=== PATIENT | female | born 1965 | race African-American/Black ===

== ENCOUNTER → 2016-10-15 | Emergency (ER) | payer OTHER ==
[~2016-10-15] VITALS: Ht 157.5 cm; Wt 52.6 kg
[~2016-10-15] MED LIST: ALBUTEROL SULF8.5 GM INH; CYCLOBENZAPRINE10 MG ORAL; Ketorolac 30mg Inj IM ONE; NIFEDIPINE10 MG ORAL; NORCO 10/3251 EA ORAL; NORCO 5-325 TA1 EAC1 ORAL; Norco 5mg/325mg tab ORAL ONE; PREDNISONE20 MG ORAL
[2016-10-15 20:38] VITALS: BP 156/101
[2016-10-15 21:31] VITALS: BP 156/101
--- NOTE | 2016-10-15 21:48 | Emergency Room Report ---
History of Present Illness General Chief Complaint: Pain Source: Patient Present Illness HPI The patient is a 51-year-old female with a history of sciatica presenting for lower back pain which radiates down the left leg. She states that she has been more active within the past 2 days and thinks this may have provoked it. Pain is described as a 9/10 dull ache. Worse with walking and bending over. She has tried Motrin which has not helped. She denies any other symptoms including nausea, vomiting, abdominal pain, fever, chills, numbness or tingling, chest pain, shortness of breath Allergies: Coded Allergies: HYDROMORPHONE (Unverified Allergy, Unknown, 06/20/15) LORAZEPAM (Unverified Allergy, Unknown, 06/20/15) PENICILLIN G (Unverified Allergy, Unknown, 06/20/15) Patient History Past Medical History: see triage record Pertinent Family History: none Last Menstrual Period: 8 months ago : 0 Para: 0 Reviewed Nursing Documentation: PMH: Agreed, PSxH: Agreed Nursing Documentation-PMH Past Medical History: No History, Except For Hx Cardiac Problems: No - ANXIETY, scaitica, lupus Hx Hypertension: Yes Hx Asthma: Yes Review of Systems All Other Systems: negative except mentioned in HPI Physical Exam Vital Signs Date Time Temp Pulse Resp B/P Pulse Ox O2 Delivery O2 Flow Rate FiO2 10/15/16 19:51 98.1 118 21 166/114 97 Room Air Sp02 EP Interpretation: reviewed, normal General Appearance: no apparent distress, alert, GCS 15, non-toxic Head: normocephalic, atraumatic Eyes: bilateral eye PERRL, bilateral eye normal inspection ENT: hearing grossly normal, normal pharynx, no angioedema, normal voice Neck: full range of motion, supple/symm/no masses Respiratory: chest non-tender, lungs clear, normal breath sounds, speaking full sentences Cardiovascular #1: regular rate, rhythm, no edema Gastrointestinal: normal bowel sounds, non tender, soft, non-distended, no guarding, no rebound Musculoskeletal: tender - TTP over the L lower back and posterior thigh Neurologic: alert, oriented x3, responsive, motor strength/tone normal, sensory intact, speech normal Psychiatric: judgement/insight normal, memory normal, mood/affect normal, no suicidal/homicidal ideation Skin: normal color, no rash, warm/dry, well hydrated Lymphatic: no adenopathy Medical Decision Making PA Attestation Dr. Byrd is my supervising physician. Patient management was discussed with my supervising physician Diagnostic Impression: Primary Impression: Sciatica Qualified Codes: M54.30 - Sciatica, unspecified side ER Course The patient is a 51-year-old female presenting for sciatica flareup Differential diagnosis is considered but not limited to: Sciatica, muscle strain , sprain, fracture, disc herniation, cauda equina syndrome, pyelonephritis, among others Physical exam: afebrile. No apparent distress There is tenderness to palpation over the left paraspinal muscles as well as the posterior left thigh. No midline tenderness No imaging is needed at this time as this was a chronic condition The patient is given IM Toradol and [place] and states pain has decreased. She will need to follow up with primary doctor and possibly pain management. She is given a small prescription for [place] and Flexeril. ER precautions are given Last Vital Signs Date Time Temp Pulse Resp B/P Pulse Ox O2 Delivery O2 Flow Rate FiO2 10/15/16 21:31 97.9 109 18 156/101 97 Room Air Status: improved Disposition: HOME, SELF-CARE Condition: Improved Scripts Hydrocodone Bit/Acetaminophen 5-325* (NORCO 5-325 TABLET*) 1 Each Tablet 1 TAB ORAL Q6HR Y for For Pain, #5 TAB Prov: SUMIT URRUTIA.A. 10/15/16 Cyclobenzaprine Hcl* (FLEXERIL*) 10 Mg Tablet 10 MG ORAL THREE TIMES A DAY, #15 TAB Prov: SUMIT URRUTIA.A. 10/15/16 Patient Instructions: Sciatica Additional Instructions: I discussed my findings with the patient. All questions and concerns have been answered. Treatment and medication compliance have been addressed. I advised the patient that they need to follow up with PMD in 3-5 days. Return to ED if symptoms worsen, new symptoms arise, or if needed for any reason. Patient verbalized understanding of discharge instructions. SUMIT URRUTIA Oct 15, 2016 21:48
== END | disposition home or self-care (01) ==
LOC: EMR 20:15
DX: M54.42 Lumbago with sciatica, left side (principal); F41.9 Anxiety disorder, unspecified; I10 Essential (primary) hypertension; Z88.0 Allergy status to penicillin; Z88.8 Allergy status to other drugs, medicaments and biological substances; J45.909 Unspecified asthma, uncomplicated
CPT/HCPCS: 96372; 99284; J1885

== ENCOUNTER 2017-01-16 15:55 | Emergency (ER) | payer OTHER ==
[~2017-01-16] VITALS: Ht 154.9 cm; Wt 52.2 kg
[~2017-01-16 15:55] MED LIST changes: -Ketorolac 30mg Inj IM ONE; -Norco 5mg/325mg tab ORAL ONE
--- NOTE | 2017-01-16 17:08 | Emergency Room Report ---
History of Present Illness General Chief Complaint: Lower Extremity Injury Source: Patient Present Illness HPI 51 YO Female presents to the ED c/o Right foot pain s/p fracture sustained 3 weeks ago. no appt with ortho until 2 weeks from now. 01/15 pain. not been using crutches. Denies new trauma or fall. Denies swelling, changes in skin color, or loss of sensation in the extremity. Pt admits to not be using her crutches regularly. Pt. reports pmhx of sciatica. Denies numbness tingling or loss of sensation or gross motor movements of the extremities, incontinence of bowel or bladder. Denies CP, Palpitations, LOC, AMS, dizziness, Changes in Vision, Sensation, paresthesias, or a sudden severe headache. Allergies: Coded Allergies: HYDROMORPHONE (Unverified Allergy, Unknown, 06/20/15) KETOROLAC (Verified Allergy, Unknown, 01/16/17) LORAZEPAM (Unverified Allergy, Unknown, 06/20/15) PENICILLIN G (Unverified Allergy, Unknown, 06/20/15) Patient History Past Medical History: see triage record Past Surgical History: none Pertinent Family History: none Now: No Reviewed Nursing Documentation: PMH: Agreed, PSxH: Agreed Nursing Documentation-PMH Hx Cardiac Problems: No - ANXIETY, scaitica, lupus Hx Hypertension: Yes Hx Asthma: Yes Review of Systems All Other Systems: negative except mentioned in HPI Physical Exam Vital Signs Date Time Temp Pulse Resp B/P (MAP) Pulse Ox O2 Delivery O2 Flow Rate FiO2 01/16/17 16:28 98.8 103 20 163/119 94 Room Air Sp02 EP Interpretation: reviewed, normal General Appearance: no apparent distress, alert, GCS 15, non-toxic Head: normocephalic, atraumatic Eyes: bilateral eye normal inspection, bilateral eye PERRL ENT: hearing grossly normal, normal voice Neck: full range of motion, supple/symm/no masses Respiratory: lungs clear, normal breath sounds, speaking full sentences Cardiovascular #1: regular rate, rhythm, no edema Cardiovascular #2: 2+ dorsalis pedis (R), 2+ dorsalis pedis (L) Gastrointestinal: normal bowel sounds, non tender, soft, no guarding, no rebound Rectal: deferred Genitourinary: normal inspection, no CVA tenderness Musculoskeletal: back normal, gait/station normal, normal range of motion, tender - TTP to the dorsum of the right lateral metatarsals, short leg posterior splint is in place, pt. is NVI. Neurologic: alert, oriented x3, responsive, motor strength/tone normal, sensory intact, normal gait, speech normal Psychiatric: judgement/insight normal, memory normal, mood/affect normal Skin: normal color, no rash, warm/dry, well hydrated Medical Decision Making PA Attestation Dr. Cotto is my supervising Physician whom patient management has been discussed with. Diagnostic Impression: Primary Impression: Foot fracture, right Qualified Codes: S92.901P - Unspecified fracture of right foot, subsequent encounter for fracture with malunion ER Course Pt. presents to the ED c/o continued Right foot pain s/p fracture sustained 3 weeks ago. no appt with ortho until 2 weeks from now. 01/15 pain. not been using crutches. Pt. is out of pain medication. Ddx considered but are not limited to Fracture, dislocation, contusion, Sprain/ Strain/Spasm, non-compliance, drug-seeking just to name a few. Vital signs: are WNL, pt. is afebrile H&PE are most consistent with previous foot injury of fracture with short leg posterior in place, no evidence of compartment syndrome, poor splint placement, or infection. ORDERS: - X-ray Right foot 3 views - POSITIVE FOR fx at base of the 5th toe, Dislocation, or significant soft tissue injury, per preliminary read in ED by Dr. Cotto - interpretation is scribed by PA. ED INTERVENTIONS: - Percocet -Crutches -Pt verbally reports she has tolerated norco/percocet in the past despite having allergy listed for hydromorphone, Recent CURES report also verifies pt. is rx'd [place] almost monthly. -d/w pt. that it is imperative that she rest her foot, and use crutches. also d/ w pt. that she needs to follow up with ORTHO, if she required additional narcotic pain medications her PMD will need to provide this for her. Highly recommended her to switch to anti-inflammatory medication and use crutches. DISCHARGE: At this time pt. is stable for d/c to home. Will provide printed patient care instructions, and any necessary prescriptions. Care plan and follow up instructions have been discussed with the patient prior to discharge. Last Vital Signs Date Time Temp Pulse Resp B/P (MAP) Pulse Ox O2 Delivery O2 Flow Rate FiO2 01/16/17 16:28 98.8 103 20 163/119 94 Room Air Disposition: HOME, SELF-CARE Condition: Stable Scripts Hydrocodone Bit/Acetaminophen 5-325* (NORCO 5-325 TABLET*) 1 Each Tablet 1 TAB ORAL Q6HR Y for For Pain, #4 TAB Prov: Aileen Vincent 01/16/17 Referrals: [facility],REFERRING (PCP) Patient Instructions: Metatarsal Fracture Additional Instructions: Take medications as directed. Follow up with a Primary Care Provider for ORTHOPEDIC REFERRAL in 3-5 days, even if your symptoms have resolved. --Please review list of primary care clinics, if you do not already have a primary care provider Return sooner to ED if new symptoms occur, or current symptoms become worse. Do not drink alcohol, drive, or operate heavy machinery while taking [place] as this may cause drowsiness. - Please note that this Emergency Department Report was dictated using Partschannelspool maker technology software, occasionally this can lead to erroneous entry secondary to interpretation by the dictation equipment. Aileen Vincent Jan 16, 2017 17:08
[2017-01-16] MEDS ORDERED: NORCO 5-325 TA1 EAC1 ORAL (18:04)
[2017-01-16 18:16] VITALS: BP 151/89
--- NOTE | 2017-01-17 09:56 | Diagnostic Imaging Report ---
Indication: PAIN Technique: 3 views right foot Comparison: none Findings: Overlying splint obscures bony detail. There is a transverse fracture of the base of the fifth metatarsal. There is hallux valgus and metatarsus adductus. The joint spaces are preserved. Impression: Positive for fifth metatarsal base fracture, in a splint. Per ED report in the electronic medical record,, this is 2 weeks old.
== END 2017-01-16 18:16 | disposition home or self-care (01) ==
LOC: EMR 16:34
DX: S92.901A Unspecified fracture of right foot, initial encounter for closed fracture (principal); X58.XXXA Exposure to other specified factors, initial encounter; Y93.9 Activity, unspecified; Y99.9 Unspecified external cause status; M79.671 Pain in right foot; F41.9 Anxiety disorder, unspecified; M54.30 Sciatica, unspecified side; M32.9 Systemic lupus erythematosus, unspecified; J45.909 Unspecified asthma, uncomplicated; I10 Essential (primary) hypertension; Z88.0 Allergy status to penicillin; Z88.5 Allergy status to narcotic agent
CPT/HCPCS: 99283